=== PATIENT | male | born 1960 | race Caucasian/White ===

== ENCOUNTER → 2018-07-14 16:02 | Outpatient (CLI) | payer OTHER, SELFPAY ==
--- NOTE | 2018-07-14 16:07 | RAD_ITS ---
STUDY: X-RAY - RIGHT SHOULDER REASON FOR EXAM: Male, 58 years old. Shoulder pain. Recent injury. TECHNIQUE: 4 view(s) of the shoulder. COMPARISON: None. FINDINGS: Normal glenohumeral articulation. There are degenerative changes of the acromioclavicular joint. Normal acromion. Normal humeral head and visualized proximal humerus. The soft tissue structures are unremarkable. Normal visualized pulmonary apex. RAD/Shoulder min 2 Views IMPRESSION: Degenerative changes of the acromioclavicular joint. Electronically Signed: Betty Win MD at 23:13 EDT Tel , Service support ,
== END ==
PROVIDERS: Family Provider Family Medicine; PCP Family Medicine; Referring Provider Nurse Practitioner Adult Health; Visit Provider Nurse Practitioner Adult Health
DX: M25.511 Pain in right shoulder (principal)
CPT/HCPCS: 73030

== ENCOUNTER 2018-07-17 13:11 | Outpatient (RCR) | payer OTHER, SELFPAY | END 2018-07-17 19:00 | LOC: PT 13:11 | PROVIDERS: Family Provider Family Medicine; PCP Family Medicine; Referring Provider Nurse Practitioner Adult Health; Visit Provider Nurse Practitioner Adult Health | DX: M25.511 Pain in right shoulder (principal); W19.XXXD Unspecified fall, subsequent encounter ==

== ENCOUNTER 2018-09-20 07:41 | Emergency (ER) | payer OTHER, SELFPAY ==
[2018-09-20 07:42] VITALS: BP 127/81; PULSE 72; RESP 18; TEMP 36.9; O2SAT 98; BMI 26.8
--- NOTE | 2018-09-20 07:57 | RAD_ITS ---
STUDY: X-RAY - RIGHT KNEE REASON FOR EXAM: Male, 58 years old. Twisted TECHNIQUE: 4 view(s) of the knee. COMPARISON: None. FINDINGS: Normal visualized distal femur. Normal visualized proximal tibia and fibula. Normal proximal tibiofibular articulation. Normal medial femorotibial compartment. Normal lateral femorotibial compartment. Normal patellofemoral articulation. Mild suprapatellar effusion. The soft tissue structures are unremarkable. RAD/Knee 4 or More Views IMPRESSION: Mild effusion of the knee. Electronically Signed: Morris Campos DO at 9:06 EDT Tel [phone], Service support ,
--- NOTE | 2018-09-20 07:59 | ED.VISSUMM ---
- ER Visit Summary Date of Service: 09/20/18 Chief Complaint: Right knee injury History of Present Illness: The patient is a 58 M who jumped over a corn hole board in his yard last night and slipped, injuring his right knee. He has pain and swelling medially along the right knee. He denies any other injury. He is not able to weight-bear. Physical Examination: Vital signs unremarkable. Patient sitting upright in bed no acute distress. Right lower extremity examination was no tenderness at the hip. He has edema and tenderness along the medial joint line of the right knee. There is decreased range of motion. He does have pain with valgus stress. He has strong distal pulses and good sensation. Test Results: Right knee x-rays per my review revealed no bony injury. Emergency Department Course and Treatment: Patient declined pain medication while here. I am concerned for an MCL injury. He has a knee brace that has been working well for him and he will continue to use this. He has crutches at home that he will use. He will be referred to orthopedics for close follow-up. He will be given a prescription for Courtland as needed. Treatment Plan: [] Disposition: Discharge Impression: Right knee injury with concern for MCL tear This note was generated with [employer] dictation software. It may contain incorrect words, spelling, and punctuation that were not noted in review of the chart prior to signing ED Disposition - Plan for ED Patient: Disposition: Home or Assisted Living Instructions: ED Sprain Knee Collateral Ligaments Prescriptions: Hydrocodone Bitart/Apap 5-325 [Courtland 5MG-325MG] 1 tablet PO Q6H PRN PRN 3 Days #10 tablet PRN Reason: Pain Referrals: Wicho Howe DO [STAFF PHYSICIAN] - As soon as possible
[2018-09-20 09:04] VITALS: BP 109/68; PULSE 77; RESP 15; O2SAT 98
== END 2018-09-20 09:05 | disposition home or self-care (01) ==
PROVIDERS: Emergency Provider Emergency Medicine; Family Provider Family Medicine; PCP Family Medicine
DX: S89.91XA Unspecified injury of right lower leg, initial encounter (principal); W01.0XXA Fall on same level from slipping, tripping and stumbling without subsequent striking against object, initial encounter; Y93.9 Activity, unspecified; Y92.007 Garden or yard of unspecified non-institutional (private) residence as the place of occurrence of the external cause; Y99.9 Unspecified external cause status
CPT/HCPCS: 73564; 99282

== ENCOUNTER → 2018-09-26 08:43 | Outpatient (CLI) | payer OTHER, SELFPAY ==
[2018-09-21 10:58] VITALS: BMI 26.8
--- NOTE | 2018-09-26 08:52 | MRI_ITS ---
STUDY: MRI RIGHT KNEE REASON FOR EXAM: Male, 58 years old. Knee injury, knee pain. TECHNIQUE: Standardized fat and water weighted pulse sequences were obtained in all 3 orthogonal planes. COMPARISON: None. FINDINGS: 2 cm trizonal flap tear of the posterior horn medial meniscus extending to the inferior surface. Thin multiloculated fluid collection extending from the posterior aspect of the meniscus inferiorly worrisome for parameniscal cyst. There is diffuse, less than 50% thickness articular cartilage loss of the medial femorotibial compartment. Mild contusion of the posterior medial tibial plateau. Disruption of the mid aspect of the medial collateral ligament consistent with a grade 3 medial collateral ligament tear. Normal distal semimembranosus, gracilis and semitendinosus tendons. Normal lateral meniscus. Normal hyaline cartilage of the lateral femorotibial compartment. Mild contusions of the lateral femoral condyle and posterior lateral tibial plateau consistent with pivot shift injury.. Normal proximal tibiofibular articulation. Normal lateral collateral (fibular) ligament. Normal popliteus tendon. Normal biceps femoris tendon. Transection of the proximal aspect of the anterior cruciate ligament (ACL tear). Normal posterior cruciate ligament (PCL). Normal congruent patellofemoral articulation. Normal hyaline cartilage of the patellofemoral compartment. Normal medial and lateral patellar retinaculum. Normal quadriceps tendon. Normal patellar tendon. Normal Hoffa's fat pad. There is a moderate volume joint effusion. The soft tissues are unremarkable. The otherwise visualized osseous structures are unremarkable. MRI/Lower Ext Joint Only (Routine) IMPRESSION: 1. Recent pivot shift injury with anterior cruciate ligament transection (ACL tear), grade 3 medial collateral ligament tear, mild bone contusions, and a moderate joint effusion. 2. 2 cm trizonal flap tear of the posterior horn of the medial meniscus extending to inferior surface with a thin inferiorly extending parameniscal cyst which may be chronic. Electronically Signed: Leeroy Skinner MD at 8:23 EDT Tel , Service support ,
== END ==
PROVIDERS: Family Provider Family Medicine; PCP Family Medicine; Referring Provider Orthopaedic Surgery; Visit Provider Orthopaedic Surgery
DX: M25.561 Pain in right knee (principal)
CPT/HCPCS: 73721

== ENCOUNTER 2018-11-24 14:00 | Outpatient (RCR) | payer OTHER, SELFPAY ==
[2018-09-21 10:58] VITALS: BMI 26.8
--- NOTE | 2018-10-26 16:25 | HP.PTEVAL_ITS ---
Patient's Visit Information SHA LANGLEY Jr. is a 58 year old M referred to Physical Therapy by KIMBERLY DENNISON with a diagnosis of ACL reconstruction with Ant Tib Allograft 10/14/18. Date of Evaluation: 10/26/18 Physical Therapist: Rashmi Dalal DPT - Visit Plan Frequency: 2x /Week Duration: 4 Weeks Plan: ACL reconstruction 10/14/18 with Ant Tib Allogaft- follow ACL protocol. 10/26/18 HEP Given: quad set supine, heel slide supine, bolster extn supine, quad set sitting, heel slide sitting, bolster extn sitting, standing TKE - Subjective Findings: Tore ACL and meniscus- jumped over the edge of a cornhole board and caught it September 19, 2018. Surgery October 14, [address] Mendoza- home after surgery. Single story with basement that he doesn't use- a few stairs to enter but no problems at this time. Was on crutches and a TROM brace- he is suppose to be wearing the TROM but its uncomfortable. Is wearing this brace and is fully WB. 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 Is no longer taking pain medication. Pain is located along the medial side of the knee-the incision is sensitive. Its swollen so its hard to bend and straighten all the day. Worst: 3/10 Agg: being up on it Eases: ice senior information security analyst. Best: 0/10. Describes the pain as dull and achy unless he hits the incision then its a zinger. Does have soreness in the calf but not point tender. Does have some tingling and numbness in the posterior leg. No hip or back pain at this point. Goes back to [facility] in 6 weeks. Very active norrmally- bikes and plays golf. PMHx: none Meds: none. Sleep: disturbed- no brace now which helps- side sleeper. - Objective Posture: FH, RS- can correct but does not maintain. Gait: antalgic- full weight bearing- decreased stance with significant lack of heel strike due to lack of ROM. HR/TR: able. SLS: ws but reports pain. Observation: incision healing well- steri strips. Girth: 6 above: 50.5 cm Patella: 41 cm. Palpation: not tender. ROM: 64 degrees of flexion 25 degrees from full extn. strength: Quad set not visible- SLR able but has significant lag- hip: 4+/5, Ankle: 5/5 - Goals Goal 1:: Patient will be I with HEP and progression Goal Time Frame: 4-6 Weeks Goal 2:: Patient will ambualte >300 feet with a normalized gait pattern Goal Time Frame: 4-6 Weeks Goal 3:: Patient will demo 0-130 degrees of ROM in LE Goal Time Frame: 4-6 Weeks Goal 4:: Patient will demo equal girth 6 above patella Goal Time Frame: 4-6 Weeks - Rehabilitation Potential Physical Therapy Diagnosis: Patient presents with hypomobility- he has decreased ROM, strength and muscular endurance leading to abnormal gait pattern and decreased ability to perform ADL's, Rehabilitation Potential: Good - Anticipated Interventions Patient/Client Instruction: Educate patient on: Benefits of Fitness Program Therapeutic Exercise to Include: Strength training, Endurance training, Balance training, Agility training, Body mechanics, Postural training, Flexibilty training, Gait and locomotor training, Passive ROM, Active ROM For the Purpose of:: To improve muscle performance and motor function TENS: Yes Cryotherapy (ice pack, ice massage): Yes Thermo therapy (hot pack): Yes Ultrasound (thermal/non thermal): No Thank you for the opportunity to evaluate your patient. For Medicare and Medicare HMO plans, please review the plan of care and approve it. It will need to be FAXED BACK to us at [phone] for Medicare purposes. For Medicare only, by signing this I certify the plan of care. Please let me know if there are questions or concerns regarding this plan of care. Physician Signature: Date:
--- NOTE | 2018-11-11 10:55 | HP.PTREVAL ---
KIMBERLY DENNISON, It has been my pleasure to treat SHA LANGLEY Jr. over the last 6 visits for ACL reconstruction with Ant Tib Allograft 10/14/18. Please see the progress note below for an update on the physical therapy plan of care! Subjective: Patient reports that he put the brace on and it seems to help with edema mgmt. Feels the knee has more extension but is still challenged with flexion. Patient feels that he is 30% back to normal Objective/Function: Patient was able to complete without incidence. ROM: 8 degrees after prone hang and 5 degrees with overpressure from patient- 120 degrees. Girth: Left: 6 above 52.5 Patella: 41.5, Right: 6 above:51.5 Patella: 38.5. Patient is making excellent progress with his ROM and gait pattern Plan Plan: ACL reconstruction 10/14/18 with Ant Tib Allogaft- follow ACL protocol. 10/26/18 HEP Given: quad set supine, heel slide supine, bolster extn supine, quad set sitting, heel slide sitting, bolster extn sitting, standing TKE. 11/11/18 Continue with POC 2x a week for 4 weeks- focus on continued progression of ROM, strength and muscular endurance with functional mobility . Goals Goal 1:: Patient will be I with HEP and progression Goal Time Frame: 4-6 Weeks Goal 2:: Patient will ambualte >300 feet with a normalized gait pattern Goal Time Frame: 4-6 Weeks Goal 3:: Patient will demo 0-130 degrees of ROM in LE Goal Time Frame: 4-6 Weeks Goal 4:: Patient will demo equal girth 6 above patella Goal Time Frame: 4-6 Weeks Anticipated Interventions Patient/Client Instruction: Educate patient on: Benefits of Fitness Program Therapeutic Exercise to Include: Strength training, Endurance training, Balance training, Agility training, Body mechanics, Postural training, Flexibilty training, Gait and locomotor training, Passive ROM, Active ROM For the Purpose of:: To improve muscle performance and motor function TENS: Yes Cryotherapy (ice pack, ice massage): Yes Thermo therapy (hot pack): Yes Ultrasound (thermal/non thermal): No Please do not hesitate to contact me at [phone] by phone or if you have questions or concerns regarding this new plan of care! Sincerely, Rashmi Dalal BIBIT
--- NOTE | 2019-01-22 09:50 | HP.PT.NRP ---
HP - Discharge Summary (1) - Patient Information SHA LANGLEY Jr. was seen in my office for initial evaluation on 10/26/18. The following Plan of Care was established for this patient: Initial Frequency: 2x /Week Initial Duration: 4 Weeks - Anticipated Interventions Patient/Client Instruction: Educate patient on: Benefits of Fitness Program Therapeutic Exercise to Include: Strength training, Endurance training, Balance training, Agility training, Body mechanics, Postural training, Flexibilty training, Gait and locomotor training, Passive ROM, Active ROM For the Purpose of:: To improve muscle performance and motor function TENS: Yes Cryotherapy (ice pack, ice massage): Yes Thermo therapy (hot pack): Yes Ultrasound (thermal/non thermal): No This patient was last seen in our office . Pertinent comments regarding their Physical therapy will appear below: Patient has not attended PT in 4 weeks and is appropriate for d/c- return to [facility] for further evaluation as needed. At this point I will be discontinuing this patient from physical therapy. I would be happy to see this patient again in the future if found appropriate by the physician. Thank you! Rashmi Dalal DPT
== END 2018-11-24 19:00 | disposition home or self-care (01) ==
LOC: PT 14:00
PROVIDERS: Family Provider Family Medicine; PCP Family Medicine
DX: Z98.890 Other specified postprocedural states (principal)
CPT/HCPCS: 97016; 97110; 97161; 97164; 97530

== ENCOUNTER → 2019-01-27 08:20 | Outpatient (CLI) | payer OTHER, SELFPAY ==
[2018-09-21 10:58] VITALS: BMI 26.8
[2019-01-27 10:24] LABS: Anion Gap 6 (5-15); BUN 15 mg/dL (7-18); BUN/Creat Ratio 13.9 RATIO (10-20); Calcium,Total 9.2 mg/dL (8.5-10.1); Chloride 105 mmol/L (98-107); Cholesterol 270 mg/dL (200); Creatinine, Serum 1.08 mg/dL (0.70-1.30); EST Glomerular Filtration Rate 74 mL/min (>60); Est Glom Filt Rate - Afr Amer 90 mL/min (>60); Glucose 109 mg/dL (74-106); High Density Lipoprotein 43 mg/dL; PSA,Total - Annual Screen 0.71 ng/mL (0.00-4.00); Sodium Level 140 mmol/L (136-145); Triglycerides 308 mg/dL; Very Low Density Lipoprotein 62 mg/dL (5-40)
== END ==
PROVIDERS: Family Provider Family Medicine; PCP Family Medicine; Referring Provider Family Medicine; Visit Provider Family Medicine
DX: E78.5 Hyperlipidemia, unspecified (principal); Z12.5 Encounter for screening for malignant neoplasm of prostate
CPT/HCPCS: 36415; 80048; 80061; 84153; G0103

== ENCOUNTER → 2019-05-03 08:15 | Outpatient (CLI) | payer OTHER, SELFPAY ==
[2018-09-21 10:58] VITALS: BMI 26.8
[2019-05-03 11:12] LABS: ALB/GLOB Ratio 1.1 RATIO (0.9-2.4); AST(SGOT) 19 U/L (15-37); Alanine Aminotransfer ALT/SGPT 37 U/L (16-61); Albumin, Serum 3.9 g/dL (3.2-5.0); Alkaline Phosphatase 60 U/L (45-117); BUN 16 mg/dL (7-18); BUN/Creat Ratio 15.2 RATIO (10-20); Cholesterol 214 mg/dL (200); Creatinine, Serum 1.05 mg/dL (0.70-1.30); EST Glomerular Filtration Rate 77 mL/min (>60); Est Glom Filt Rate - Afr Amer 93 mL/min (>60); Globulin 3.5 g/dL (2.2-4.2); Glucose 108 mg/dL (74-106); Protein, Total 7.4 g/dL (6.4-8.2); Triglycerides 307 mg/dL
[2019-05-03 11:13] LABS: Anion Gap 6 (5-15); Chloride 108 mmol/L (98-107); High Density Lipoprotein 47 mg/dL; Potassium 3.9 mmol/L (3.5-5.1); Sodium Level 140 mmol/L (136-145); Very Low Density Lipoprotein 61 mg/dL (5-40)
== END ==
PROVIDERS: PCP Family Medicine; Visit Provider Family Medicine
DX: E78.5 Hyperlipidemia, unspecified (principal)
CPT/HCPCS: 36415; 80053; 80061

== ENCOUNTER → 2020-07-20 08:11 | Outpatient (CLI) | payer OTHER, SELFPAY ==
[2018-09-21 10:58] VITALS: BMI 26.8
[2020-07-20 10:27] LABS: ALB/GLOB Ratio 1.2 RATIO (0.9-2.4); AST(SGOT) 27 U/L (15-37); Alanine Aminotransfer ALT/SGPT 43 U/L (16-61); Albumin, Serum 3.9 g/dL (3.2-5.0); Alkaline Phosphatase 56 U/L (45-117); Anion Gap 4 (5-15); BUN 21 mg/dL (7-18); BUN/Creat Ratio 23.6 RATIO (10-20); Calcium,Total 8.8 mg/dL (8.5-10.1); Chloride 110 mmol/L (98-107); Cholesterol 164 mg/dL (200); Creatinine, Serum 0.89 mg/dL (0.70-1.30); EST Glomerular Filtration Rate 92 mL/min (>60); Est Glom Filt Rate - Afr Amer 112 mL/min (>60); Globulin 3.2 g/dL (2.2-4.2); Glucose 115 mg/dL (74-106); High Density Lipoprotein 53 mg/dL; Magnesium 2.3 mg/dL (1.6-2.6); Potassium 3.8 mmol/L (3.5-5.1); Protein, Total 7.1 g/dL (6.4-8.2); Sodium Level 139 mmol/L (136-145); Triglycerides 161 mg/dL; Very Low Density Lipoprotein 32 mg/dL (5-40); Vitamin D,25 Hydroxy 36.4 ng/mL
[2020-07-20 10:34] LABS: Hemoglobin A1c 5.7 % (3.8-5.6)
== END ==
PROVIDERS: Family Medicine; PCP Family Medicine; Referring Provider Family Medicine; Visit Provider Family Medicine
DX: E78.5 Hyperlipidemia, unspecified (principal); K52.9 Noninfective gastroenteritis and colitis, unspecified; R73.03 Prediabetes; E55.9 Vitamin D deficiency, unspecified
CPT/HCPCS: 36415; 80053; 80061; 82306; 83036; 83735

== ENCOUNTER → 2020-07-31 15:56 | Outpatient (CLI) | payer OTHER, SELFPAY ==
[2018-09-21 10:58] VITALS: BMI 26.8
[2020-07-31 17:59] LABS: PSA,Total - Annual Screen 0.56 ng/mL (0.00-4.00)
== END ==
PROVIDERS: PCP Family Medicine; Visit Provider Family Medicine
DX: Z12.5 Encounter for screening for malignant neoplasm of prostate (principal)
CPT/HCPCS: 36415; 84153; G0103

== ENCOUNTER → 2022-03-14 | Outpatient (CLI) | payer OTHER, SELFPAY ==
[2022-03-14 10:59] LABS: Vitamin D,25 Hydroxy 47.2 ng/mL
[2022-03-14 11:17] LABS: ALB/GLOB Ratio 1.2 RATIO (0.9-2.4); AST(SGOT) 15 U/L (15-37); Alanine Aminotransfer ALT/SGPT 35 U/L (16-61); Albumin, Serum 3.7 g/dL (3.2-5.0); Alkaline Phosphatase 48 U/L (45-117); Anion Gap 11 (5-15); BUN 18 mg/dL (7-18); BUN/Creat Ratio 18.3 RATIO (10-20); Calcium,Total 8.5 mg/dL (8.5-10.1); Chloride 109 mmol/L (98-107); Cholesterol 189 mg/dL (200); Creatinine, Serum 0.99 mg/dL (0.70-1.30); EST Glomerular Filtration Rate 82 mL/min (>60); Est Glom Filt Rate - Afr Amer 99 mL/min (>60); Glucose 113 mg/dL (74-106); High Density Lipoprotein 43 mg/dL; PSA,Total - Annual Screen 0.94 ng/mL (0.00-4.00); Potassium 4.1 mmol/L (3.5-5.1); Protein, Total 6.7 g/dL (6.4-8.2); Sodium Level 142 mmol/L (136-145); Triglycerides 305 mg/dL; Very Low Density Lipoprotein 61 mg/dL (5-40)
== END | disposition home or self-care (01) ==
LOC: MFPLAB 09:30
PROVIDERS: PCP Nurse Practitioner Family; Referring Provider Nurse Practitioner Family; Visit Provider Nurse Practitioner Family
DX: E78.5 Hyperlipidemia, unspecified (principal); E55.9 Vitamin D deficiency, unspecified; R73.09 Other abnormal glucose; Z12.5 Encounter for screening for malignant neoplasm of prostate
CPT/HCPCS: 36415; 80053; 80061; 82306; 83036; 84153; G0103

== ENCOUNTER → 2022-10-02 | Outpatient (CLI) | payer OTHER, SELFPAY ==
[2022-10-02 10:59] LABS: AST(SGOT) 27 U/L (15-37); Alanine Aminotransfer ALT/SGPT 38 U/L (16-61); Albumin, Serum 3.7 g/dL (3.2-5.0); Alkaline Phosphatase 59 U/L (45-117); Anion Gap 6 (5-15); BUN 17 mg/dL (7-18); BUN/Creat Ratio 17.3 RATIO (10-20); Calcium,Total 8.8 mg/dL (8.5-10.1); Chloride 111 mmol/L (98-107); Cholesterol 208 mg/dL (200); Creatinine, Serum 0.98 mg/dL (0.70-1.30); EST Glomerular Filtration Rate 82 mL/min (>60); Est Glom Filt Rate - Afr Amer 99 mL/min (>60); Globulin 3.6 g/dL (2.2-4.2); Glucose 107 mg/dL (74-106); High Density Lipoprotein 47 mg/dL; Protein, Total 7.3 g/dL (6.4-8.2); Sodium Level 142 mmol/L (136-145); Triglycerides 229 mg/dL; Very Low Density Lipoprotein 46 mg/dL (5-40)
[2022-10-02 13:43] LABS: Hemoglobin A1c 5.8 % (3.8-5.6)
== END | disposition home or self-care (01) ==
PROVIDERS: PCP Family Medicine; Referring Provider Nurse Practitioner Family; Visit Provider Nurse Practitioner Family
DX: R73.03 Prediabetes (principal); E78.5 Hyperlipidemia, unspecified
CPT/HCPCS: 36415; 80053; 80061; 83036

== ENCOUNTER → 2023-08-21 | Outpatient (CLI) | payer OTHER, SELFPAY ==
[2023-08-21 10:22] LABS: Vitamin D,25 Hydroxy 67.1 ng/mL
[2023-08-21 10:34] LABS: ALB/GLOB Ratio 1.1 RATIO (0.9-2.4); AST(SGOT) 32 U/L (15-37); Alanine Aminotransfer ALT/SGPT 28 U/L (16-61); Albumin, Serum 3.7 g/dL (3.2-5.0); Alkaline Phosphatase 54 U/L (45-117); Anion Gap 3 (5-15); BUN 17 mg/dL (7-18); BUN/Creat Ratio 16.8 RATIO (10-20); Calcium,Total 8.9 mg/dL (8.5-10.1); Chloride 111 mmol/L (98-107); Cholesterol 227 mg/dL (200); Creatinine, Serum 1.01 mg/dL (0.70-1.30); EST Glomerular Filtration Rate 79 mL/min (>60); Est Glom Filt Rate - Afr Amer 96 mL/min (>60); Globulin 3.4 g/dL (2.2-4.2); Glucose 117 mg/dL (74-106); High Density Lipoprotein 50 mg/dL; PSA,Total - Annual Screen 0.68 ng/mL (0.00-4.00); Potassium 4.2 mmol/L (3.5-5.1); Protein, Total 7.1 g/dL (6.4-8.2); Sodium Level 139 mmol/L (136-145); Triglycerides 178 mg/dL; Very Low Density Lipoprotein 36 mg/dL (5-40)
== END | disposition home or self-care (01) ==
PROVIDERS: PCP Family Medicine; Visit Provider Family Medicine
DX: Z12.5 Encounter for screening for malignant neoplasm of prostate (principal); E78.5 Hyperlipidemia, unspecified; E55.9 Vitamin D deficiency, unspecified
CPT/HCPCS: 36415; 80053; 80061; 82306; 84153; G0103

== ENCOUNTER → 2024-03-02 | Outpatient (CLI) | payer OTHER, SELFPAY ==
[2024-03-02 10:09] LABS: Vitamin D,25 Hydroxy 43.7 ng/mL
[2024-03-02 10:11] LABS: ALB/GLOB Ratio 1.1 RATIO (0.9-2.4); AST(SGOT) 21 U/L (15-37); Alanine Aminotransfer ALT/SGPT 33 U/L (16-61); Albumin, Serum 3.9 g/dL (3.2-5.0); Alkaline Phosphatase 58 U/L (45-117); Anion Gap 6 (5-15); BUN 18 mg/dL (7-18); Chloride 109 mmol/L (98-107); Cholesterol 233 mg/dL (200); EST Glomerular Filtration Rate 80 mL/min (>60); Est Glom Filt Rate - Afr Amer 96 mL/min (>60); Globulin 3.4 g/dL (2.2-4.2); Glucose 115 mg/dL (74-106); High Density Lipoprotein 53 mg/dL; Potassium 4.1 mmol/L (3.5-5.1); Protein, Total 7.3 g/dL (6.4-8.2); Sodium Level 140 mmol/L (136-145); Triglycerides 269 mg/dL; Very Low Density Lipoprotein 54 mg/dL (5-40)
== END | disposition home or self-care (01) ==
PROVIDERS: PCP Family Medicine; Visit Provider Family Medicine
DX: Z00.00 Encounter for general adult medical examination without abnormal findings (principal)
CPT/HCPCS: 36415; 80053; 80061; 82306; 84153; G0103